=== PATIENT | male | born 1945 | race Caucasian/White ===

== ENCOUNTER 2021-03-06 11:31 | Emergency (ER) | payer OTHER ==
[~2021-03-06] VITALS: Ht 180.3 cm; Wt 81.8 kg
[2021-03-06 11:39] VITALS: BP 138/90; TEMP 97.9
[2021-03-06 13:55] VITALS: PULSE 74
== END 2021-03-06 13:55 | disposition home or self-care (01) ==
LOC: COL.ER 11:31
DX: R22.42 Localized swelling, mass and lump, left lower limb (principal); I48.91 Unspecified atrial fibrillation; Z79.01 Long term (current) use of anticoagulants